=== PATIENT | male | born 1985 | race Caucasian/White ===

== ENCOUNTER 2017-03-25 19:21 | Emergency (ER) | payer OTHER ==
--- NOTE | 2017-03-25 20:19 | ED NURSING NOTES ---
Clinical Report - Nurses [facility] [address] [place] [address] 03/25/2017 19:23 Patient: RADHIKA LEDEZMA TRIAGE Triage time 19:29. Acuity: LEVEL 4. Chief Complaint: Location of symptoms- right hand (laceration). --19:35 Rancho Gonzalez R.N. 19:29 03/25/17. BP: 140/84. HR: 95. RR: 16. O2 saturation: 95%. Temp: 98.4 F (oral). Pain level now: 11/02. --19:35 Rancho Gonzalez R.N. Weight: 83.9 kg stated. Height/Length: 69 inches Per Patient. BMI: 27.3. --19:34 Rancho Gonzalez R.N. Medications None. --19:32 Rancho Gonzalez R.N. Medication/allergy information source: the patient. --19:35 Rancho Gonzalez R.N. Allergies No Known Drug Allergy. --19:32 Rancho Gonzalez R.N. History Arrived by private vehicle. Historian: patient. Accompanied by family. ( Was chopping wood when the hatchet got stucked on the wood and when he tried to kick it the hatchet flung up and nicked his left hand. Controlled bleeding with pressure dressing.). This occurred just prior to arrival. Treatment WARP DOFFER: Performed wound care and applied bandage. PAST MEDICAL HX: Negative. Tetanus status: up-to-date. SURGERY HX: Inguinal hernia repair (2007). SOCIAL HX: Alcohol use; consumes beer. --19:35 Rancho Gonzalez R.N. Interventions ID band on patient. To room. --19:35 Rancho Gonzalez R.N. PHYSICAL ASSESSMENT Ambulatory to room. GENERAL / NEURO / PSYCH: Oriented X 4. Alert. Appears in no acute distress. EXTREMITIES: Extremities exhibit normal ROM. Neuro-vascular status intact to the extremity. Left hand: laceration with controlled bleeding. SKIN: Skin intact. Skin is warm and dry. --19:36 Rancho Gonzalez R.N. NURSING PROGRESS NOTES Extremity elevated. Neuro-vascular extremity check. Patient identifiers checked. Call light placed in reach. Bed placed in lowest position. Brakes of bed on. Patient ready for evaluation- ED physician and OUTSIDE MACHINIST APPRENTICE notified. --19:37 Rancho Gonzalez R.N. Wound cleansed with sterile saline. Applied clean dressing consisting of 4x4 gauze, following the application of antibiotic ointment (bacitracin). Secured with kerlix and bret. --20:31 Rancho Gonzalez R.N. Reassessment after wound repair. Overall patient status is improved- he states feels better. GENERAL / NEURO / PSYCH: Alert. Oriented X 4. RESPIRATORY: No respiratory distress. CVS: Capillary refill less than 2 seconds. EXTREMITIES: Neuro-vascular status intact to the extremity. SKIN: Skin is warm and dry. --20:32 Rancho Gonzalez R.N. DISPOSITION / DISCHARGE Condition at departure: improved. No learning barriers present. Discharge instructions provided and reviewed with the patient. Reviewed referral to a primary care physician for followup. Patient verbalized understanding. Written instructions provided in Gibralt[place]. The patient was discharged home and accompanied by family. He left the Emergency Department ambulatory and via private vehicle. Family member driving. --20:33 Rancho Gonzalez R.N. 20:32 03/25/17. BP: 138/82. HR: 95. RR: 14. O2 saturation: 96%. Temp: deferred. Pain level now: 10/02. --20:33 Rancho Gonzalez R.N. Departure time: 20:34. --20:34 Rancho Gonzalez R.N. Locked/Released at 03/25/2017 20:35 by Rancho Gonzalez R.N.
--- NOTE | 2017-03-25 20:19 | ED ORDER SUMMARY ---
..... Patient: RADHIKA LEDEZMA OrderSheet Merged With [facility] VisitID: [id number] [address] [place] [address] 31y, M Registration Date/Time: 03/25/2017 ORDER SHEET Weight: 83.9 kg (stated) Allergies: No Known Drug Allergy GENERAL ORDERS: Suture Set-up: (19:52 03/25/2017 HBivens A.R.N.P.) (Ack 19:55 Monica R.N.) (20:34 CHernandez R.N.) Dress Wounds (19:52 03/25/2017 HBivens A.R.N.P.) (Ack 19:55 CHeroly R.N.) (20:34 CHernandez R.N.) MEDICATION ORDERS: Bupivacaine Injection 0.5 % (soln) (NOW) (19:51 03/25/2017 HBivens A.R.N.P.) (Ack 19:55 Monica R.N.) Lidocaine Injection 1% plain (NOW) (19:51 03/25/2017 HBivens A.R.N.P.) (Ack 19:55 CHernandez R.N.) IV FLUIDS: ORDER SHEET NOTES: [Electronically signed by Rancho Gonzalez R.N. (20:35 03/25/2017)] [Electronically signed by Susana CallahanR.N.PIraj (20:43 03/25/2017)] [Electronically locked/signed by Rancho Gonzalez R.N. (20:35 03/25/2017)]
--- NOTE | 2017-03-25 20:19 | ED CLINICAL REPORT ---
Clinical Report - Physicians/Mid Levels [facility] [address] [place] [address] 03/25/2017 19:23 Patient: RADHIKA LEDEZMA Time Seen: 19:47; initial patient contact, initial documentation, patient care assumed. Arrived- By private vehicle. Historian- patient. HISTORY OF PRESENT ILLNESS Chief Complaint: Injury to the left ring finger and left 5th (little) finger. The injury happened just prior to arrival. The patient sustained a laceration from a sharp edge (shira). Occurred at home. Patient is experiencing mild pain. Patient denies injury to the head or neck. No other injury. REVIEW OF SYSTEMS The patient sustained a laceration. No swelling, tingling, numbness, weakness or foreign body. All systems otherwise negative, except as recorded above. PAST HISTORY See nurses notes. PAST MEDICAL HX: Negative. Tetanus status: up-to-date. SURGERY HX: Inguinal hernia repair (2007). The patient's dominant hand is the right. Tetanus immunization status is up-to-date. SOCIAL HISTORY Never smoker. No alcohol use or drug use. No recent travel. Is a local resident. FAMILY HISTORY No significant family medical history. ADDITIONAL NOTES The nursing notes have been reviewed with agreement regarding the chief complaint, HPI, ROS, PMH and patient medications and allergies. PHYSICAL EXAM Vital Signs: 03/25/2017 19:29 BP: 140/84. HR: 95. RR: 16. O2 saturation: 95%. Temp: 98.4 F. Pain level now: 2/10. Have been reviewed as normal and appear to be correct. Appearance: Alert. Oriented X3. No acute distress. Head: Head atraumatic. Eyes: Pupils equal, round and reactive to light. Eyes normal inspection. Respiratory: No respiratory distress. Skin: Skin warm and dry. Skin intact. Extremities: Hand injury present. Left ring finger: mild tenderness and superficial 1.0 cm laceration of the dorsal aspect, MCP joint and proximal phalanx- SEE LACERATION PROCEDURE NOTE #1. Neurovascular intact distally. (1-2 mm from mcp joint). No erythema, swelling, abrasion, ecchymosis or puncture wound. No foreign body or deformity. No limitation in movement. No subungual hematoma or amputation present. Left little finger: mild tenderness and subcutaneous 1.5 cm laceration of the dorsal aspect, MCP joint and proximal phalanx- SEE LACERATION PROCEDURE NOTE #1. Neurovascular intact distally. (1-2 mm above the mcp joint). No erythema, swelling, abrasion, ecchymosis or puncture wound. No foreign body or deformity. No limitation in movement. No subungual hematoma or amputation present. No wrist injury. Hand and wrist exam otherwise negative. Extremities otherwise negative. Neuro, Vascular and Tendons: Vascular status intact. Sensation intact. Motor intact. Tendon function intact. Neuro: Oriented X 3. No motor deficit. No sensory deficit. Note: isolated injury to fingers. PROGRESS AND PROCEDURES Laceration Repair: Location: left little finger. Length: 1.5cm. Complexity: simple (local anesthesia used and sutured). Wound depth/shape- subcutaneous, linear and irregular. Wound is clean. No contamination, foreign body or contused tissue present. No tissue loss. Distal neuro/vascular/tendon status normal. Tendon not examined. No tendon deficit or laceration or tendon injury. Anesthesia provided by digital block using 1% lidocaine and 0.50% Marcaine (3 mL). Prepped with Betadine. Wound explored, cleansed, irrigated and examined to the base in bloodless field with normal saline. No foreign material removed. Closure of skin: interrupted 4-0 nylon (5 sutures). Post-procedure: he is stable and there are no complications. Bleeding is controlled and neuro-vascular status is intact distal to the wound. Dressing applied. (per nursing staff, see other notes). Tetanus immunization up-to-date. Estimated blood loss: 5 mL. Laceration Repair #2: Location: left ring finger. Length: 1 cm. Complexity: simple (local anesthesia used and sutured). Wound depth/shape- subcutaneous and linear. Wound is clean. No contamination, foreign body or contused tissue present. No tissue loss. Distal neuro/vascular/tendon status normal. Tendon not examined. No tendon deficit or laceration or tendon injury. Anesthesia provided using 1% lidocaine and 0.50% Marcaine (4 mL). Prepped with Betadine. Wound explored, cleansed, irrigated and examined to the base in bloodless field with normal saline. Wound not debrided. No foreign material removed. Closure of skin: interrupted 4-0 nylon (4 sutures). Post-procedure: he is stable and there are no complications. Bleeding is controlled and neuro-vascular status is intact distal to the wound. Estimated blood loss: 5 mL. Patient counseled in person regarding the patient's stable condition and diagnosis. Differential Diagnosis: Other possible considerations: finger lac, finger fx, fb, skin avulsion. Above considerations are based on history and physical exam. Differential diagnosis was discussed with patient. Disposition: Discharged home in good and improved condition (20:18). Condition: good and stable. CLINICAL IMPRESSION Single deep laceration to the left ring finger and left little finger.Treatment of laceration not delayed. No infection, foreign body present or left fingernail injury. INSTRUCTIONS Protect wound and keep wound area clean. Soak in warm soapy water twice daily. Apply neosporin twice daily. Sutures should be removed in ten days. Warnings: GENERAL WARNINGS: Return or contact your physician immediately if your condition worsens or changes unexpectedly, if not improving as expected, or if other problems arise. Specifically return if problem worsens. Follow-up: Follow up with your doctor in about ten days for suture removal and wound check. Call for an appointment. Summary of care provided to patient. Understanding of the discharge instructions verbalized by patient. (Electronically signed by Susana Callahan A.R.N.P. 03/25/2017 20:43)
--- NOTE | 2017-03-25 20:19 | ED NURSING NOTES ---
Clinical Report - Nurses [facility] [address] [place] [address] 03/25/2017 19:23 Patient: RADHIKA LEDEZMA TRIAGE Triage time 19:29. Acuity: LEVEL 4. Chief Complaint: Location of symptoms- right hand (laceration). --19:35 Rancho Gonzalez R.N. 19:29 03/25/17. BP: 140/84. HR: 95. RR: 16. O2 saturation: 95%. Temp: 98.4 F (oral). Pain level now: 11/02. --19:35 Rancho Gonzalez R.N. Weight: 83.9 kg stated. Height/Length: 69 inches Per Patient. BMI: 27.3. --19:34 Rancho Gonzalez R.N. Medications None. --19:32 Rancho Gonzalez R.N. Medication/allergy information source: the patient. --19:35 Rancho Gonzalez R.N. Allergies No Known Drug Allergy. --19:32 Rancho Gonzalez R.N. History Arrived by private vehicle. Historian: patient. Accompanied by family. ( Was chopping wood when the hatchet got stucked on the wood and when he tried to kick it the hatchet flung up and nicked his left hand. Controlled bleeding with pressure dressing.). This occurred just prior to arrival. Treatment CHEMICAL APPLICATOR: Performed wound care and applied bandage. PAST MEDICAL HX: Negative. Tetanus status: up-to-date. SURGERY HX: Inguinal hernia repair (2007). SOCIAL HX: Alcohol use; consumes beer. --19:35 Rancho Gonzalez R.N. Interventions ID band on patient. To room. --19:35 Rancho Gonzalez R.N. PHYSICAL ASSESSMENT Ambulatory to room. GENERAL / NEURO / PSYCH: Oriented X 4. Alert. Appears in no acute distress. EXTREMITIES: Extremities exhibit normal ROM. Neuro-vascular status intact to the extremity. Left hand: laceration with controlled bleeding. SKIN: Skin intact. Skin is warm and dry. --19:36 Rancho Gonzalez R.N. NURSING PROGRESS NOTES Extremity elevated. Neuro-vascular extremity check. Patient identifiers checked. Call light placed in reach. Bed placed in lowest position. Brakes of bed on. Patient ready for evaluation- ED physician and OUTREACH ANALYST notified. --19:37 Rancho Gonzalez R.N. Wound cleansed with sterile saline. Applied clean dressing consisting of 4x4 gauze, following the application of antibiotic ointment (bacitracin). Secured with kerlix and bret. --20:31 Rancho Gonzalez R.N. Reassessment after wound repair. Overall patient status is improved- he states feels better. GENERAL / NEURO / PSYCH: Alert. Oriented X 4. RESPIRATORY: No respiratory distress. CVS: Capillary refill less than 2 seconds. EXTREMITIES: Neuro-vascular status intact to the extremity. SKIN: Skin is warm and dry. --20:32 Rancho Gonzalez R.N. DISPOSITION / DISCHARGE Condition at departure: improved. No learning barriers present. Discharge instructions provided and reviewed with the patient. Reviewed referral to a primary care physician for followup. Patient verbalized understanding. Written instructions provided in Lao. The patient was discharged home and accompanied by family. He left the Emergency Department ambulatory and via private vehicle. Family member driving. --20:33 Rancho Gonzaelz R.N. 20:32 03/25/17. BP: 138/82. HR: 95. RR: 14. O2 saturation: 96%. Temp: deferred. Pain level now: 10/02. --20:33 Rancho Gonzalez R.N. Departure time: 20:34. --20:34 Rancho Gonzalez R.N. Locked/Released at 03/25/2017 20:35 by Rancho Gonzalez R.N.
--- NOTE | 2017-03-25 20:19 | ED ORDER SUMMARY ---
..... Patient: RADHIKA LEDEZMA OrderSheet [facility] VisitID: [id number] [address] [place] [address] 31y, M Registration Date/Time: 03/25/2017 ORDER SHEET Weight: 83.9 kg (stated) Allergies: No Known Drug Allergy GENERAL ORDERS: Suture Set-up: (19:52 03/25/2017 HBivens A.R.N.P.) (Ack 19:55 Monica R.N.) (20:34 CHernandez R.N.) Dress Wounds (19:52 03/25/2017 HBivens A.R.N.P.) (Ack 19:55 CHeroly R.N.) (20:34 CHernandez R.N.) MEDICATION ORDERS: Bupivacaine Injection 0.5 % (soln) (NOW) (19:51 03/25/2017 HBivens A.R.N.P.) (Ack 19:55 Monica R.N.) Lidocaine Injection 1% plain (NOW) (19:51 03/25/2017 HBivens A.R.N.P.) (Ack 19:55 CHernandez R.N.) IV FLUIDS: ORDER SHEET NOTES: [Electronically signed by Rancho Gonzalez R.N. (20:35 03/25/2017)] [Electronically signed by Susana CallahanR.N.PIraj (20:43 03/25/2017)] [Electronically locked/signed by Rancho Gonzalez R.N. (20:35 03/25/2017)]
--- NOTE | 2017-03-25 20:44 | ED MAR SUMMARY ---
..... Medication Administration Record [facility] [address] [place] [address] Patient: RADHIKA LEDEZMA Visit ID: [id number] 31y, M Weight: 83.9 kg Height/Length: 69 in BMI: 27.3 ALLERGIES: No Known Drug Allergy
--- NOTE | 2017-03-25 20:44 | ED DISCHARGE INSTRUCTIONS ---
Patient: RADHIKA LEDEZMA General Instructions [facility] VisitID: [id number] [address] [place] [address] 31y, M Registration Date/Time: 03/25/2017 Single deep laceration to the left ring finger and left little finger.Treatment of laceration not delayed. No infection, foreign body present or left fingernail injury. INSTRUCTIONS Protect wound and keep wound area clean. Soak in warm soapy water twice daily. Apply neosporin twice daily. Sutures should be removed in ten days. Warnings: GENERAL WARNINGS: Return or contact your physician immediately if your condition worsens or changes unexpectedly, if not improving as expected, or if other problems arise. Specifically return if problem worsens. Follow-up: Follow up with your doctor in about ten days for suture removal and wound check. Call for an appointment. Summary of care provided to patient. Understanding of the discharge instructions verbalized by patient. ADDITIONAL INFORMATION Laceration (All Closures) Alaceration is a cut through the skin. This will usually require stitches (sutures) or melita if it is deep. Minor cuts may be treated with a surgical tape closure orskin glue. Home care The following guidelines will help you care for your laceration at home: Extremity, face, or trunk wounds Keep the wound clean and dry. If a bandage was applied and it becomes wet or dirty, replace it. Otherwise, leave it in place for the first 24 hours. If stitches or melita were used, clean the wound daily. After removing the bandage, wash the area with soap and water. Use a wet cotton swab to loosen and remove any blood or crust that forms. The doctor may prescribe an antibiotic cream or ointment to prevent infection. Do not stop taking this medication until you have finished the prescribed course or the doctor tells you to stop. The doctor may also prescribe medications for pain. Follow the doctors instructions for taking these medications. You may remove the bandage to shower as usual after the first 24 hours, but do not soak the area in water (no swimming) until the stitches or melita are removed. If surgical tape was used, keep the area clean and dry. If it becomes wet, blot it dry with a towel. If skin glue was used, do not scratch, rub, or pick at the adhesive film. Do not place tape directly over the film. Do not apply liquid, ointment, or creams to the wound while the film is in place. Do not clean the wound with peroxide and do not apply ointments. Avoid activities that cause heavy sweating until the film has fallen off. Protect the wound from prolonged exposure to sunlight or tanning lamps. You may shower as usual but do not soak the wound in water (no baths or swimming). The film will fall off by itself in 510 days. Scalp wounds During the first two days, you may carefully rinse your hair in the shower to remove blood, glass or dirt particles. After two days, you may shower and shampoo your hair normally. Do not soak your scalp in the tub or go swimming until the stitches or melita have been removed. Talk with your doctor before applying any antibiotic ointment to the wound. Mouth wounds Eat soft foods to reduce pain. If the cut is inside of your mouth, clean by rinsing after each meal and at bedtime with a mixture of equal parts water and hydrogen peroxide (do not swallow!). Or, you can use a cotton swab to directly apply hydrogen peroxide onto the cut. Mouth wounds can be painful when eating. You may use an [id number] local numbing solution for pain relief. If this is not available, you may use any numbing solution for teething babies. You may apply this directly to the sores with a cotton-tip swab or with your finger. Follow-up care Follow up with your health care provider. Most skin wounds heal within ten days. Mouth and facial wounds heal within five days. However, even with proper treatment, a wound infection may sometimes occur. Therefore, you should check the wound daily for signs of infection listed below. Stitches should be removed from the face within five days; stitches and melita should be removed from other parts of the body within 714 days. If dissolving stitches were used in the mouth, these will fall out or dissolve without the need for removal. If tape closures were used, remove them yourself if they have not fallen off after 7 days. Ifskin glue was used, the film will fall off by itself in 510 days. When to seek medical care Get prompt medical attention if any of these occur: Bleeding not controlled by direct pressure Signs of infection, including increasing pain in the wound, increasing wound redness or swelling, or pus coming from the wound Fever of 100.4F (38C) or higher, or as directed by your health care provider Stitches or melita come apart or fall out or surgical tape falls off before 7 days Wound edges re-open You have been given the following additional information: Laceration, All (Electronically signed by Susana Callahan A.R.N.P. 03/25/2017 20:43)
--- NOTE | 2017-03-25 20:44 | ED MED RECONCILIATION SUMMARY ---
Patient: RADHIKA LEDEZMA Medication Reconciliation Report [facility] VisitID: [id number] [address] [place] [address] 31y, M Registration Date/Time: 03/25/2017 Weight: 83.9 kg Height/Length: 69 in. BMI: 27.3 ALLERGIES: No Known Drug Allergy The patient's Home Medications are listed below: NONE. The source(s) of the original Home Medication information: patient The following Medications were given to the patient in the Emergency Department: None. The following Medications were prescribed to the patient: None.
--- NOTE | 2017-03-25 20:44 | ED MAR SUMMARY ---
..... Medication Administration Record [facility] [address] [place] [address] Patient: RADHIKA LEDEZMA Visit ID: [id number] 31y, M Weight: 83.9 kg Height/Length: 69 in BMI: 27.3 ALLERGIES: No Known Drug Allergy
--- NOTE | 2017-03-25 20:44 | ED MED RECONCILIATION SUMMARY ---
Patient: RADHIKA LEDEZMA Medication Reconciliation Report [facility] VisitID: [id number] [address] [place] [place] [address] 31y, M Registration Date/Time: 03/25/2017 Weight: 83.9 kg Height/Length: 69 in. BMI: 27.3 ALLERGIES: No Known Drug Allergy The patient's Home Medications are listed below: NONE. The source(s) of the original Home Medication information: patient The following Medications were given to the patient in the Emergency Department: None. The following Medications were prescribed to the patient: None.
== END 2017-03-25 20:34 | disposition home or self-care (01) ==
LOC: ED SRH 19:21
DX: S61.217A Laceration without foreign body of left little finger without damage to nail, initial encounter (principal); S61.215A Laceration without foreign body of left ring finger without damage to nail, initial encounter; W26.8XXA Contact with other sharp object(s), not elsewhere classified, initial encounter; Y93.9 Activity, unspecified; Y92.019 Unspecified place in single-family (private) house as the place of occurrence of the external cause; Y99.9 Unspecified external cause status